=== PATIENT | female | born 1975 | race Caucasian/White ===

== ENCOUNTER → 2017-10-11 | Outpatient (CLI) | payer BC ==
--- NOTE | 2017-10-11 15:19 | DIAGNOSTIC IMAGING REPORT ---
R LOWER EXT JOINT WITHOUT CLINICAL HISTORY: RT KNEE PAIN pain TECHNIQUE: Multi axial MRI acquisition COMPARISON STUDY: None FINDINGS: Mild nonspecific contusion of the patella. Signal characteristics of all remaining osseous structures are unremarkable. Very small joint effusion. Moderate degenerative change of the patellofemoral joint moderate lateral osteophytic reaction of the patella. The patellar retinaculum are intact. Anterior and posterior cruciate ligaments are intact. Evaluation of the menisci demonstrates medial lateral meniscus to be unremarkable. The infrapatellar tendon is intact. Small popliteal cyst posterior to the knee measuring 1.7 x 0.7 cm. IMPRESSION: 1. Moderate to rather significant degenerative change patellofemoral joint. 2. Bone contusion of the patella. 3.. Small joint effusion. 4. Very small popliteal cyst. The above report was generated using voice recognition software. It may contain grammatical, syntax or spelling errors. Electronically signed by: Kristopher Aguirre M.D. 10/11/2017 3:18 PM Dictated Date/Time: 10/11/2017 3:15 PM
== END | disposition home or self-care (01) ==
LOC: C.MRI 13:50
PROVIDERS: ATTEND Physician Assistant
DX: M17.11 Unilateral primary osteoarthritis, right knee (principal); M71.21 Synovial cyst of popliteal space [Baker], right knee; S89.91XA Unspecified injury of right lower leg, initial encounter; X58.XXXA Exposure to other specified factors, initial encounter

== ENCOUNTER 2019-03-22 05:18 | Inpatient (IN) ==
[2019-03-22] MEDS ORDERED: fentaNYL citrate 100 MCG/2 ML VIAL IV STA (05:33)
[2019-03-22 05:54] LABS: Basophils # (auto) 0.01 K/uL (0-0.2); Basophils % (auto) 0.2 %; Eosinophils # (auto) 0.07 K/uL (0-0.5); Eosinophils % (auto) 1.1 %; Hematocrit (blood only) 39.5 % (37-47); Hemoglobin 13.6 g/dL (12.0-16.0); Immature Granulocytes # (auto) 0.02 K/uL (0.00-0.02); Immature Granulocytes % (auto) 0.3 %; Lymphocytes # (auto) 1.48 K/uL (1.2-3.4); Lymphocytes % (auto) 23.1 %; Mean Corpuscular Hemoglobin 29.6 pg (25-34); Mean Corpuscular Hgb Conc 34.4 g/dL (32-36); Mean Corpuscular Volume 86.1 fL (80-100); Mean Platelet Volume 9.5 fL (7.4-10.4); Monocytes # (auto) 0.23 K/uL (0.11-0.59); Monocytes % (auto) 3.6 %; Neutrophils # (auto) 4.59 K/uL (1.4-6.5); Neutrophils % (auto) 71.7 %; Platelet Count 259 K/uL (130-400); RDW Coefficient of Variation 13.6 % (11.5-14.5); RDW Standard Deviation 42.7 fL (36.4-46.3); Red Blood Count 4.59 M/uL (4.2-5.4)
[2019-03-22 06:11] LABS: Alanine Aminotransferase 17 U/L (12-78); Albumin Level 3.7 gm/dl (3.4-5.0); Aspartate Aminotransferase 12 U/L (15-37); BUN Creatinine Ratio 15.5 (10-20); Blood Urea Nitrogen 14 mg/dl (7-18); Calcium 9.2 mg/dl (8.5-10.1); Carbon Dioxide 22 mmol/L (21-32); Chloride 108 mmol/L (98-107); Creatinine Clr Calc Pharmacy 84.3 ml/min; Est GFR (Non-African American) 79.3; Glucose 108 mg/dl (70-99); Lipase 82 U/L (73-393); Potassium 3.5 mmol/L (3.5-5.1); Sodium 140 mmol/L (136-145)
[2019-03-22 06:16] LABS: Alkaline Phosphatase 60 U/L (45-117); Bilirubin,Total 0.7 mg/dl (0.2-1); Globulin 3.8 gm/dl (2.5-4.0); Total Protein 7.5 gm/dl (6.4-8.2); Troponin I < 0.015 ng/ml (0-0.045)
[2019-03-22] MEDS ORDERED: ONDANSETRON INJ 2 MG/ML 2 ML VIAL IV STA (06:19)
[2019-03-22] MEDS ORDERED: SODIUM CHLORIDE 0.9% 500 ML IV ONE (06:19)
[2019-03-22] MEDS ORDERED: fentaNYL citrate 100 MCG/2 ML VIAL IV ONE ×2 (06:19→07:30)
--- NOTE | 2019-03-22 07:07 | CT Scan Report ---
ABDOMEN AND PELVIS CT WITHOUT CONTRAST CT DOSE: 588.49 mGy.cm HISTORY: Left flank pain. eval for left sided stone; r/o gastric obstruction TECHNIQUE: Multiaxial CT images of the abdomen and pelvis were performed without contrast. A dose lo wering technique was utilized adhering to the principles of ALARA. COMPARISON STUDY: Abdomen and pelvis CT 09/04/2018. FINDINGS: The lung bases are clear. No pneumoperitoneum. No pneumatosis. No fractures within the visu alized osseous structures. Cholecystectomy. The liver, spleen, adrenal glands, pancreas, and right ki dney are unremarkable. There is a punctate stone within the upper pole the left kidney. There is mild left hydronephrosis secondary to an obstructing mid left ureteral stone best seen on image 208. This measures 4 mm. The bladder is unremarkable. The uterus and bilateral adnexa are within normal limits . Suboptimal evaluation for bowel pathology due to the lack of intravenous and oral contrast. However , there is no definite bowel wall thickening or obstruction. Normal appendix. IMPRESSION: 1. A 4 mm obstructing stone within the mid left ureter resulting in mild left hydronephrosis. 2. Left-sided nephrolithiasis. 3. No definite bowel wall thickening or obstruction. 4. Normal appendix. 5. Cholecystectomy. Electronically signed by: Dayron Hayes M.D. 03/22/2019 7:06 AM
--- NOTE | 2019-03-22 07:08 | XRay Report ---
XR chest 1V portable HISTORY: Left-sided Chest Pain COMPARISON: Chest 02/14/2019. FINDINGS: The lungs are clear. Cardiac silhouette is normal in size. No pleural effusions. No pneumot horax. IMPRESSION: No acute process. Electronically signed by: Dayron Hayes M.D. 03/22/2019 7:06 AM
[2019-03-22 07:38] LABS: Appearance Urine Turbid (Clear); Bacteria Urine Automated 1+ (Negative); Bilirubin Urine Negative (Negative); Blood Urine 3+ (Negative); Color Urine Dark Yellow; Epithelial Cell Urine Auto >30 /lpf (0-5); Glucose Urine UA Negative (Negative); Ketones Urine 1+ (Negative); Leukocyte Esterase Urine 1+ (Negative); Nitrite Urine Negative (Negative); Protein Urine 1+ (Negative); RBC Urine Automated >30 /hpf (0-4); Urobilinogen Urine Negative (Negative)
[2019-03-22] MEDS: SODIUM CHLORIDE 0.9% 500 ML IV SCH ×2 (07:39→13:53)
[2019-03-22] MEDS ORDERED: ONDANSETRON INJ 2 MG/ML 2 ML VIAL IV PRN (07:44)
[2019-03-22] MEDS ORDERED: DiphenhydrAMINE HCL 50 MG/ML VIAL IV PRN (07:45)
--- NOTE | 2019-03-22 07:49 | Emergency Department Note ---
Entered by Torie Cotto acting as a scribe for History of Present Illness General Chief complaint: Chest Pain Stated complaint: chest pain, abdominal pain Time Seen by Provider: 03/22/19 05:20 Source: patient Mode of arrival: EMS History of Present Illness Onset (ago): hour(s) 1 Location: chest Radiation: back Pain Consistency: + other (Sudden) Quality: + sharp Relieved By: + medication (Zofran) Exacerbated By: + other (light) Associated symptoms: + chest pain, + headaches, + nausea/vomiting (Positive nausea. Negative vomiting. ) and + other (Positive abdominal pain, anxious.) Treatments prior to arrival: other (Zofran) The patient is a 43 year old female who presents to the Emergency Department via EMS complaining of sudden chest pain starting 1 hour ago. The patient reports that she woke up this morning with chest pain. She states that this chest pain radiates to her back. She describes this as a sharp pain. She explains that she has abdominal pain and that she is nauseous. She notes that she has a headache and that bright lights worsen her headache. She adds that she is anxious and that her anxiety has been worse than usual lately. The patient reports that she took Cymbalta before she went to bed and thinks that it may have made her nauseous. She states that she has only taken this medication 4 times before. She explains that she is allergic to many different medications. She notes that she received Zofran INSULATION PROFESSIONAL from EMS that helped to relieve her nausea. She denies vomiting. Home Medications Home Medications Medication Instructions Recorded Confirmed Type acetaminophen [Tylenol Extra 500 mg PO Q6H PRN #20 tab 06/08/18 03/22/19 Rx Strength] diazepam 2 mg PO DIRECTED PRN 02/14/19 03/22/19 History lorazepam 0.5 mg PO DIRECTED PRN 02/14/19 03/22/19 History multivitamin 1 tab PO QAM 02/14/19 03/22/19 History rizatriptan 10 mg SUBLINGUAL UD PRN 03/22/19 03/22/19 History Allergies Allergy/AdvReac Type Severity Reaction Status Date / Time aspirin Allergy Severe Anaphylaxis Verified 03/22/19 05:49 bee venom protein (honey bee) Allergy Severe Anaphylaxis Verified 03/22/19 05:49 codeine Allergy Severe Anaphylaxis Verified 03/22/19 05:49 ibuprofen Allergy Severe Anaphylaxis Verified 03/22/19 05:49 Iodinated Contrast Media Allergy Severe Swelling Verified 03/22/19 05:49 [Iodinated Contrast- Oral of and IV Dye] Lip/Tongue/Throat latex Allergy Severe Anaphylaxis Verified 03/22/19 05:49 oxycodone Allergy Severe Anaphylaxis Verified 03/22/19 05:49 Penicillins Allergy Severe Anaphylaxis Verified 03/22/19 05:49 Sulfa (Sulfonamide Allergy Severe Anaphylaxis Verified 03/22/19 05:49 Antibiotics) milk AdvReac Intermediate Vomiting Verified 03/22/19 05:49 prednisone AdvReac Unknown Unknown Verified 03/22/19 20:30 Past Med/Surg History Medical History Colic, ureteral Hydronephrosis Ureteral stone Surgical History Hx laparoscopic cholecystectomy Hx of breast reduction, elective Family History Other No significant family history Social History Preferred Language: Jordanian Communication Ability: Effective Wiping Rag Washer Required: No Beliefs That Will Affect Care: None Current Living Situation: Family Other Information That Helps Us Care for You: No Feels Safe at Home: Yes Safety Concerns: Feels Safe At This Time Smoking Status: Never smoker Hx Alcohol Use: No Hx Substance Use: No Review of Systems See HPI for pertinent positives & negatives. and A total of 10 systems reviewed and were otherwise negative Physical Exam Vital Signs Vital Signs - 24 hr 03/22/19 05:26 03/22/19 05:38 03/22/19 06:28 Temperature 36.3 C L Temperature Source Oral Sepsis Recent Fever Within 48 Hours No Sepsis Action Taken by Nursing No Action Required Pulse Rate 53 L Pulse Rate [Right] 49 L Pulse Rhythm Regular Pulse Rhythm [Right] Regular Pulse Strength Normal Pulse Strength [Right] Normal Respiratory Rate 20 16 Respiratory Effort / Characteristics Non-Labored Spontaneous Non-Labored Spontaneous Respiratory Depth Normal Normal Blood Pressure 165/96 H Blood Pressure [Right Arm] 130/88 Blood Pressure Mean 119 Blood Pressure Mean [Right Arm] 102 Blood Pressure Position Sitting Blood Pressure Position [Right Arm] Lying Pulse Oximetry 100 100 98 Oxygen Delivery Method Room Air Room Air Room Air 03/22/19 07:43 Temperature Temperature Source Sepsis Recent Fever Within 48 Hours Sepsis Action Taken by Nursing Pulse Rate Pulse Rate [Right] 59 L Pulse Rhythm Pulse Rhythm [Right] Pulse Strength Pulse Strength [Right] Respiratory Rate 18 Respiratory Effort / Characteristics Non-Labored Spontaneous Respiratory Depth Normal Blood Pressure Blood Pressure [Right Arm] 122/86 Blood Pressure Mean Blood Pressure Mean [Right Arm] 98 Blood Pressure Position Blood Pressure Position [Right Arm] Pulse Oximetry 100 Oxygen Delivery Method Room Air General: Patient appears quite anxious. HEENT: Head - normocephalic and atraumatic Pupils are equal, round, and reactive to light. Extraocular eye muscles are intact, and sclera are anicteric. Nose - moist nasal mucosa without discharge. Mouth - moist buccal mucosa. Oropharynx is nonerythematous and there is no tonsillar exudate or edema noted. Neck: Supple; no cervical lymphadenopathy Heart: Regular rate and rhythm. There is a normal S1 and S2 with no murmurs, cl icks, or gallops appreciated. Lungs: Clear to auscultation bilaterally with no wheezes, rales, or rhonchi. Abdomen: Pain to palpation of LUQ, LLQ and left CVA. Soft, nondistended, with good bowel sounds. There are no palpable pulsatile masses or hepatosplenomegaly. There is no guarding, rigidity, or rebound noted. Extremities: No evidence of cyanosis, clubbing, or edema. There are easily palpable peripheral pulses. Skin: warm and dry with good turgor and no rashes. Course 0522: Past medical records reviewed. The patient was evaluated in room B7. A complete history and physical exam was performed. Labs were drawn as above. 0543: Fentanyl Citrate 25 mcg IV 0618: I reevaluated the patient at this time who reports that Fentanyl only gave her slight relief for a short period of time and that her pain has worsened since then in the LUQ of her abdomen. She is not able to urinate. I will order more Zofran. She will go to CT. 0625: Fentanyl Citrate 50 mcg IV, Sodium Chloride 500 ml @ 999 mls/hr IV, Zofran 4 mg IV 0644: CT called me at this time. The patient refused to take her arms off of her abdomen. I was called over to CT. She was insistent that her come into CT with her and hold her hand while she was getting her scan. After the veterinary assistant technician explained the danger of radiation exposure he would get, he went into CT with t he patient while wearing a lead apron. 0714: I reviewed the patients renal US from 2013 which showed a right-sided 7 mm stone. 0716: I reevaluated the patient at this time to discuss the results of the CT. She is demanding to be admitted for pain management. 0739: Fentanyl Citrate 50 mcg IV, Sodium Chloride 500 ml @ 125 mls/hr IV 0740: I discussed the patient's case with Dr. Jairo Rich hospitalist. He will evaluate the patient for further management. Consultations Consultation #1: [id number]: I discussed the patient's case with Dr. Jairo Rich [facility]. He will evaluate the patient for further management. Time: 07:40 Administered Medications Diazepam (Valium) 2 mg PO BID PRN PRN Reason: Anxiety Stop: 04/21/19 14:38 Last Admin: 03/22/19 16:21 Dose: 2 mg Documented by: [id number] Duloxetine HCl (Cymbalta) 20 mg PO HS BORA Stop: 04/21/19 20:59 Last Admin: 03/22/19 20:17 Dose: 20 mg Documented by: [id number] Acetaminophen (Ofirmev) 65 mls @ 200 mls/hr IV Q8H PRN PRN Reason: mild pain or fever Stop: 04/21/19 07:44 Last Infusion: 03/22/19 21:29 Dose: 0 mls/hr Documented by: [id number] Admin: 03/22/19 21:02 Dose: 200 mls/hr Documented by: [id number] Sodium Chloride (Nss 1000ml) 1,000 mls @ 125 mls/hr IV .Q8H BORA Stop: 04/21/19 13:59 Last Admin: 03/22/19 22:30 Dose: 125 mls/hr Documented by: [id number] Infusion: 03/22/19 22:25 Dose: 125 mls/hr Documented by: [id number] Infusion: 03/22/19 21:28 Dose: 125 mls/hr Documented by: [id number] Infusion: 03/22/19 21:02 Dose: 0 mls/hr Documented by: [id number] Admin: 03/22/19 13:59 Dose: 125 mls/hr Documented by: [id number] Oxybutynin Chloride (Ditropan) 5 mg PO BID PRN PRN Reason: Spasm Stop: 04/21/19 10:44 Last Admin: 03/22/19 13:57 Dose: 5 mg Documented by: [id number] Tamsulosin HCl (Flomax) 0.4 mg PO HS BORA Stop: 04/21/19 20:59 Last Admin: 03/22/19 20:17 Dose: 0.4 mg Documented by: [id number] Discontinued Medications Diazepam (Valium) 2 mg PO NOW ONE Stop: 03/22/19 16:20 Last Admin: 03/22/19 16:41 Dose: Not Given Documented by: [id number] Fentanyl Citrate (Fentanyl Citrate) 25 mcg IV NOW STA Stop: 03/22/19 05:34 Last Admin: 03/22/19 05:43 Dose: 25 mcg Documented by: [id number] Fentanyl Citrate (Fentanyl Citrate) 50 mcg IV NOW ONE Stop: 03/22/19 06:20 Last Admin: 03/22/19 06:25 Dose: 50 mcg Documented by: [id number] Fentanyl Citrate (Fentanyl Citrate) 50 mcg IV NOW ONE Stop: 03/22/19 07:31 Last Admin: 03/22/19 07:39 Dose: 50 mcg Documented by: [id number] Sodium Chloride (Nss) 500 mls @ 999 mls/hr IV .Q31M ONE Stop: 03/22/19 06:49 Last Infusion: 03/22/19 06:56 Dose: 0 mls/hr Documented by: [id number] Admin: 03/22/19 06:25 Dose: 999 mls/hr Documented by: [id number] Sodium Chloride (Nss) 500 mls @ 125 mls/hr IV .Q4H BORA Stop: 04/21/19 07:29 Last Admin: 03/22/19 13:53 Dose: Not Given Documented by: [id number] Infusion: 03/22/19 13:52 Dose: 0 mls/hr Documented by: [id number] Infusion: 03/22/19 10:50 Dose: 125 mls/hr Documented by: [id number] Admin: 03/22/19 07:39 Dose: 125 mls/hr Documented by: [id number] Acetaminophen (Ofirmev) 65 mls @ 200 mls/hr IV NOW ONE Stop: 03/22/19 09:26 Last Admin: 03/22/19 09:16 Dose: Not Given Documented by: [id number] Ondansetron HCl (Zofran) 4 mg IV NOW STA Stop: 03/22/19 06:20 Last Admin: 03/22/19 06:25 Dose: 4 mg Documented by: [id number] Tamsulosin HCl (Flomax) 0.4 mg PO NOW ONE Stop: 03/22/19 10:38 Last Admin: 03/22/19 11:32 Dose: 0.4 mg Documented by: [id number] Medical Decision Making Differential Diagnosis Differential diagnosis include ACS, anxiety, aortic dissection, SBO, ureteral calculi, pyelonephritis and diverticulitis amongst others. Medical Records Attestation: I reviewed the patient's medical records. Home Medications Current Medication List: was personally reviewed by me Laboratory Data Attestation: I reviewed the patient's lab results. Result diagrams: 03/22/19 05:44 03/22/19 05:44 Lab Results 03/22/19 03/22/19 03/22/19 Range/Units 05:44 05:44 07:10 WBC 6.40 (4.8-10.8) K/uL RBC 4.59 (4.2-5.4) M/uL Hgb 13.6 (12.0-16.0) g/dL Hct 39.5 (37-47) % MCV 86.1 (80-100) fL MCH 29.6 (25-34) pg MCHC 34.4 (32-36) g/dL RDW Std Deviation 42.7 (36.4-46.3) fL RDW Coeff of Bhavna 13.6 (11.5-14.5) % Plt Count 259 (130-400) K/uL MPV 9.5 (7.4-10.4) fL Immature Gran % (Auto) 0.3 % Neut % (Auto) 71.7 % Lymph % (Auto) 23.1 % Andrew % (Auto) 3.6 % Eos % (Auto) 1.1 % Baso % (Auto) 0.2 % Immature Gran # (Auto) 0.02 (0.00-0.02) K/uL Neut # (Auto) 4.59 (1.4-6.5) K/uL Lymph # (Auto) 1.48 (1.2-3.4) K/uL Andrew # (Auto) 0.23 (0.11-0.59) K/uL Eos # (Auto) 0.07 (0-0.5) K/uL Baso # (Auto) 0.01 (0-0.2) K/uL Sodium 140 (136-145) mmol/L Potassium 3.5 (3.5-5.1) mmol/L Chloride 108 H (98-107) mmol/L Carbon Dioxide 22 (21-32) mmol/L Anion Gap 10.0 (3-11) BUN 14 (7-18) mg/dl Creatinine 0.88 (0.6-1.2) mg/dl Est Cr Clr Drug Dosing 84.3 ml/min Est GFR ( Amer) 92.0 Est GFR (Non-Af Amer) 79.3 BUN/Creatinine Ratio 15.5 (10-20) Glucose 108 H (70-99) mg/dl Calcium 9.2 (8.5-10.1) mg/dl Total Bilirubin 0.7 (0.2-1) mg/dl AST 12 L (15-37) U/L ALT 17 (12-78) U/L Alkaline Phosphatase 60 (45-117) U/L Troponin I < 0.015 (0-0.045) ng/ml Total Protein 7.5 (6.4-8.2) gm/dl Albumin 3.7 (3.4-5.0) gm/dl Globulin 3.8 (2.5-4.0) gm/dl Albumin/Globulin Ratio 1.0 (0.9-2) Lipase 82 (73-393) U/L Urine Color Urine Appearance (Clear) Urine pH (4.5-7.5) Ur Specific [place] (1.000-1.030) Urine Protein (Negative) Urine Glucose (UA) (Negative) Urine Ketones (Negative) Urine Blood (Negative) Urine Nitrite (Negative) Urine Bilirubin (Negative) Urine Urobilinogen (Negative) Ur Leukocyte Esterase (Negative) Urine WBC (Auto) (0-5) /hpf Urine RBC (Auto) (0-4) /hpf U Hyaline Cast (Auto) (0-5) /lpf U Epithel Cells (Auto) (0-5) /lpf Urine Bacteria (Auto) (Negative) Urine Crystals Calcium Oxalate Crystal (None Prsent) Urine Mucus (None Prsent) POC Ur Test NEG (NEG) 03/22/19 Range/Units 07:10 WBC (4.8-10.8) K/uL RBC (4.2-5.4) M/uL Hgb (12.0-16.0) g/dL Hct (37-47) % MCV (80-100) fL MCH (25-34) pg MCHC (32-36) g/dL RDW Std Deviation (36.4-46.3) fL RDW Coeff of Bhavna (11.5-14.5) % Plt Count (130-400) K/uL MPV (7.4-10.4) fL Immature Gran % (Auto) % Neut % (Auto) % Lymph % (Auto) % Andrew % (Auto) % Eos % (Auto) % Baso % (Auto) % Immature Gran # (Auto) (0.00-0.02) K/uL Neut # (Auto) (1.4-6.5) K/uL Lymph # (Auto) (1.2-3.4) K/uL Andrew # (Auto) (0.11-0.59) K/uL Eos # (Auto) (0-0.5) K/uL Baso # (Auto) (0-0.2) K/uL Sodium (136-145) mmol/L Potassium (3.5-5.1) mmol/L Chloride (98-107) mmol/L Carbon Dioxide (21-32) mmol/L Anion Gap (3-11) BUN (7-18) mg/dl Creatinine (0.6-1.2) mg/dl Est Cr Clr Drug Dosing ml/min Est GFR ( Amer) Est GFR (Non-Af Amer) BUN/Creatinine Ratio (10-20) Glucose (70-99) mg/dl Calcium (8.5-10.1) mg/dl Total Bilirubin (0.2-1) mg/dl AST (15-37) U/L ALT (12-78) U/L Alkaline Phosphatase (45-117) U/L Troponin I (0-0.045) ng/ml Total Protein (6.4-8.2) gm/dl Albumin (3.4-5.0) gm/dl Globulin (2.5-4.0) gm/dl Albumin/Globulin Ratio (0.9-2) Lipase (73-393) U/L Urine Color Dark Yellow Urine Appearance Turbid A (Clear) Urine pH 5.0 (4.5-7.5) Ur Specific [place] 1.020 (1.000-1.030) Urine Protein 1+ H (Negative) Urine Glucose (UA) Negative (Negative) Urine Ketones 1+ H (Negative) Urine Blood 3+ H (Negative) Urine Nitrite Negative (Negative) Urine Bilirubin Negative (Negative) Urine Urobilinogen Negative (Negative) Ur Leukocyte Esterase 1+ H (Negative) Urine WBC (Auto) 10-30 H (0-5) /hpf Urine RBC (Auto) >30 H (0-4) /hpf U Hyaline Cast (Auto) 5-10 H (0-5) /lpf U Epithel Cells (Auto) >30 H (0-5) /lpf Urine Bacteria (Auto) 1+ H (Negative) Urine Crystals Not Reportable Calcium Oxalate Crystal Present A (None Prsent) Urine Mucus Present A (None Prsent) POC Ur Test (NEG) Imaging Data Attestation: I personally reviewed and interpreted this imaging study as follows: My Impression: XR Chest 1V: No pulmonary pathology. Extremely large gastric bubble under left hero diaphragm. Radiologist's Impression: Radiology results as stated below per my review and the radiologist's interpretation: ABDOMEN AND PELVIS CT WITHOUT CONTRAST CT DOSE: 588.49 mGy.cm HISTORY: Left flank pain. eval for left sided stone; r/o gastric obstruction TECHNIQUE: Multiaxial CT images of the abdomen and pelvis were performed without contrast. A dose lowering technique was utilized adhering to the principles of ALARA. COMPARISON STUDY: Abdomen and pelvis CT 09/04/2018. FINDINGS: The lung bases are clear. No pneumoperitoneum. No pneumatosis. No fractures within the visualized osseous structures. Cholecystectomy. The liver, spleen, adrenal glands, pancreas, and right kidney are unremarkable. There is a punctate stone within the upper pole the left kidney. There is mild left hydronephrosis secondary to an obstructing mid left ureteral stone best seen on image 208. This measures 4 mm. The bladder is unremarkable. The uterus and bilateral adnexa are within normal limits. Suboptimal evaluation for bowel pathology due to the lack of intravenous and oral contrast. However, there is no definite bowel wall thickening or obstruction. Normal appendix. IMPRESSION: 1. A 4 mm obstructing stone within the mid left ureter resulting in mild left hydronephrosis. 2. Left-sided nephrolithiasis. 3. No definite bowel wall thickening or obstruction. 4. Normal appendix. 5. Cholecystectomy. Electronically signed by: Dayron Hayes M.D. 03/22/2019 7:06 AM ECG Data Attestation: I personally reviewed and interpreted this ECG as follows: Indication: chest pain Rate (beats per minute): 51 Rhythm: sinus bradycardia Findings: no acute ischemic change and no ectopy Blood Pressure Blood Pressure Findings: Elevated blood pressure Blood Pressure Disposition: further management by hospitalist DELL Clark The patient is a 43 year old female who presents to the Emergency Department via EMS complaining of sudden chest pain starting 1 hour ago as well as left-sided abdominal pain.. Differential diagnosis include ACS, anxiety, aortic dissection, SBO, ureteral calculi, pyelonephritis and diverticulitis amongst others. Patient presents to the emergency department and is extremely anxious. She has multiple previous reactions to meds and is fearful of receiving pain medication but is in extreme left-sided abdominal pain. She was given IV fentanyl which she has had in the past and this did relieve her symptoms for short period of time. CT scan confirms a left-sided ureteral stone measuring 4 mm. I talked to the patient and her about the likelihood that this would pass on its own but the patient was unwilling to be discharged fear that she could not control her pain at home since the only oral medication that she can tolerate his Tylenol. I agree discussed the case with the hospitalist. The [facility] Hospitalist has agreed to evaluate the patient and consult urology. As for the patient's chest pain, she had a normal EKG and it seemed to resolve after some time. Most of her discomfort was left-sided abdominal pain and flank pain. Impression & Plan Hydronephrosis with renal and ureteral calculus obstruction Discharge Plan Visit Data *Final* Discharge Date/Time: 03/22/19 09:27 Chief Complaint: Chest Pain Stated Complaint: chest pain, abdominal pain ED Provider: Heidi Wolf Discharge Problem: Hydronephrosis with renal and ureteral calculus obstruction Patient Disposition: Admitted As Inpatient Discharge Instructions Interventions: ED Discharge Assessment Last Done: 03/22/19 09:27 The scribe's documentation has been prepared under my direction and personally reviewed by me in its entirety. I confirm that the note above accurately reflects all work, treatment, procedures, and medical decision making performed by me.
[2019-03-22 07:53] LABS: Calcium Oxalate Crystals Urine Present (None Prsent)
[2019-03-22 07:54] LABS: Mucus Urine Present (None Prsent)
--- NOTE | 2019-03-22 08:06 | History & Physical Report ---
Date of Service March 22, 2019 Assessment & Plan (1) Hydronephrosis of left kidney: (2) Hydronephrosis with renal and ureteral calculus obstruction: -Hydronephrosis of left kidney secondary to obstruction renal stone -admission CT abdomen: The lung bases are clear. No pneumoperitoneum. No pneumatosis. No fractures within the visualized osseous structures. Cholecystectomy. The liver, spleen, adrenal glands, pancreas, and right kidney are unremarkable. There is a punctate stone within the upper pole the left kidney. There is mild left hydronephrosis secondary to an obstructing mid left ureteral stone best seen on image 208. This measures 4 mm. The bladder is unremarkable. The uterus and bilateral adnexa are within normal limits. Suboptimal evaluation for bowel pathology due to the lack of intravenous and oral contrast. However, there is no definite bowel wall thickening or obstru ction. Normal appendix. -IV fluids as 125 cc/hr -Pain control is an issue because of multiple drug allergies with alleged anaphylaxis reactions such as mouth/throat swelling/closing -Patient received multiple Fentanyl doses in the ED -will hold off narcotic until re-assessment during the day when patient goes to medical ballard -will have prn IV acetaminophen for pain or fever, will have IV anti-emetics as needed -[facility] consult as patient was treated on the past by [facility] when she had kidney stones in the past (3) PTSD (post-traumatic stress disorder): -[facility] [place] - Guevara at bedside [phone] corroborates patient's requests of wanting private room because of PTSD -will hold off home oral anxiolytics for now and given low dose prn q6 hour ativan for anxiety if needed. regimen may change depending on patient's anxiety levels Full Code Status History of Present Illness The patient is a 43 year old female who presents to the Emergency Department via EMS who woke up with pain in AM of 03/22/19 and found to have left kidney stone of 4 mm that is obstructing with hydronephrosis. Patient reports that with symptoms she has recent poor oral intake. Initially, ED notes described pain has also been associated with chest discomfort radiating to back, and abdominal pain and nausea. Patient also requested that the lights be turned off in the ED exam room to avoid exacerbating headache. Because of multiple drug allergies inc luding different types of pain medications with reported history of anaphylaxis reactions such as mouth/throat swelling/closing, the ED physician gave multiple Fentanyl doses as the recourse to control severe pain. When seen by hospitalist physician, patient was seen to be uncomfortable and drowsy and complaining of feeling the "bed pushing against her back" Patient was able to sit up with assistance from her at the bedside. Patient denied pain of chest or abdomen when examined by medical doctor and there was reported more discomfort on percussion of left flank but the patient did not appear to be acutely tender there. Patient was alert to give some health history but deferred to her to answer past medical health issues in detail due to malaise. Patient also reports history of right sided renal stone that was managed by [facility] urology around May of 2018. Patient and patient's affirms that patient needs a private room when admitted because of history of Post Traumatic Stress Disorder and recently was started on Cymbalta at home. As per patient and her : denies other current medical conditions. denies family history of health problems Primary Care Provider: NO PCP Allergies Allergy/AdvReac Type Severity Reaction Status Date / Time aspirin Allergy Severe Anaphylaxis Verified 03/22/19 05:49 bee venom protein (honey bee) Allergy Severe Anaphylaxis Verified 03/22/19 05:49 codeine Allergy Severe Anaphylaxis Verified 03/22/19 05:49 ibuprofen Allergy Severe Anaphylaxis Verified 03/22/19 05:49 Iodinated Contrast Media Allergy Severe Swelling Verified 03/22/19 05:49 [Iodinated Contrast- Oral of and IV Dye] Lip/Tongue/Throat latex Allergy Severe Anaphylaxis Verified 03/22/19 05:49 oxycodone Allergy Severe Anaphylaxis Verified 03/22/19 05:49 Penicillins Allergy Severe Anaphylaxis Verified 03/22/19 05:49 Sulfa (Sulfonamide Allergy Severe Anaphylaxis Verified 03/22/19 05:49 Antibiotics) milk AdvReac Intermediate Vomiting Verified 03/22/19 05:49 Home Medications Home Medications Medication Instructions Recorded Confirmed Type acetaminophen [Tylenol Extra 500 mg PO Q6H PRN #20 tab 06/08/18 03/22/19 Rx Strength] rizatriptan 10 mg PO UD PRN 06/08/18 03/22/19 History diazepam 2 mg PO DIRECTED PRN 02/14/19 03/22/19 History lorazepam 0.5 mg PO DIRECTED PRN 02/14/19 03/22/19 History multivitamin 1 tab PO QAM 02/14/19 03/22/19 History Past Med/Surg History Medical History Colic, ureteral Hydronephrosis Ureteral stone Surgical History Hx laparoscopic cholecystectomy Hx of breast reduction, elective Family History Other No significant family history Social History Preferred Language: Gambian Communication Ability: Effective Beliefs That Will Affect Care: None Current Living Situation: Spouse Feels Safe at Home: Yes Smoking Status: Never smoker Hx Substance Use: No Review of Systems Review of Systems: All systems reviewed & are unremarkable except as noted in HPI & below Physical Exam Constitutional: + ill appearing Eyes: EOM intact bilaterally ENMT: external ear and nose normal, oropharynx normal Neck: normal visual inspection Respiratory: normal respiratory effort, lungs clear to auscultation Cardiovascular: RRR, no murmur, no edema Gastrointestinal (Abdomen): normal bowel sounds, soft, nontender, no hepatosplenomegaly Musculoskeletal: Head/Neck/Chest: normocephalic and head atraumatic on percussion of flanks, patient reports tenderness to the left flank Neurologic: moves all extremities Results & Data Vital Signs (Past 12 Hours) Vital Signs Temp Pulse Pulse Resp BP BP Pulse Ox 03/22/19 07:43 59 L 18 122/86 100 03/22/19 06:28 49 L 16 130/88 98 03/22/19 05:38 100 03/22/19 05:26 36.3 C L 53 L 20 165/96 H 100
[2019-03-22] MEDS ORDERED: ACETAMINOPHEN 65 ML IV ONE (09:07)
[2019-03-22] MEDS ORDERED: LORazepam 0.25 MG/0.5 ML VIAL IV PRN (09:57)
[2019-03-22] MEDS ORDERED: TAMSULOSIN HCL 0.4 MG CAP PO ONE (10:37)
[2019-03-22] MEDS ORDERED: OXYBUTYNIN CHLORIDE 5 MG TAB PO PRN (10:37)
--- NOTE | 2019-03-22 11:03 | Urology Consultation ---
Date of Consultation March 22, 2019 Assessment & Plan (1) Hydronephrosis of left kidney: Discussed options at length. Patient has obstructing stone with severe colic. Small stone is small and likely would be able to pass however the amount of time necessary to pass can be highly variable. Patient understands these risks. Has not had fevers or chills. Is extremely anxious at baseline and has multiple previous psychiatric related issues secondary to PTSD. Patient has multiple allergies listed which ceased states many of which cause anaphylaxis. Discussed options for stent placement. Risks and benefits discussed at length for procedure. These include bleeding, infection, injury to surrounding tissues or organs, and risks associated with anesthesia. Patient states understanding. Patient is extremely hesitant to undergo a surgical procedure. Also had significant issues with stent in the past. Discussed timing of intervention and possible urgent/emergent necessity if patient starts to develop fevers. For now will provide symptom control. Will add tamsulosin. A long conversation was had about sulfa allergies. Patient states that she does not believe that she has an issue with sulfur. Newest list of allergies does not listed as well. Our records however do show sulfa as an allergy. Understands risk related to tamsulosin and sulfur content. Would like to proceed with the tamsulosin after discussing other alternatives. Also will add Ditropan as needed. Discussed Toradol however patient is confident she has a anaphylactic allergy to all NSAIDs. We will continue to monitor closely will maintain n.p.o. for now however will likely allow patient to eat later in the day. Especially if no plans to proceed to the OR unless an emergent type situation. Continue hydration and supportive control. Will check imaging likely in the morning depending on patient's stay. History of Present Illness Attending Physician: Tahco Gill MD History of Present Illness Patient admitted with severe colic rating to groin in waves. Severe nature. Patient was found to have hydronephrosis and stone with obstruction. Patient has had episodes in the past approximately 9 months ago. Required stenting at that time. Patient has a very complicated medical and psychiatric history. Has severe issues with multiple medications which has significantly limited the ability to get the patient's pain under control. Is extremely anxious about anesthesia and procedures. Pain continues to be bothersome. Has not had much relief other than with fentanyl. Again multiple medications were limited secondary to multiple allergies. Patient and at bedside. They do have a new list which list of known allergies. They state this is the most up-to-date and recommend utilizing this for medications. Specifically patient has sulfa listed as an allergy on her records however per the patient and per the patient's new list sulfa is not a issue. This is important secondary to tamsulosin administration. Allergies Allergy/AdvReac Type Severity Reaction Status Date / Time aspirin Allergy Severe Anaphylaxis Verified 03/22/19 05:49 bee venom protein (honey bee) Allergy Severe Anaphylaxis Verified 03/22/19 05:49 codeine Allergy Severe Anaphylaxis Verified 03/22/19 05:49 ibuprofen Allergy Severe Anaphylaxis Verified 03/22/19 05:49 Iodinated Contrast Media Allergy Severe Swelling Verified 03/22/19 05:49 [Iodinated Contrast- Oral of and IV Dye] Lip/Tongue/Throat latex Allergy Severe Anaphylaxis Verified 03/22/19 05:49 oxycodone Allergy Severe Anaphylaxis Verified 03/22/19 05:49 Penicillins Allergy Severe Anaphylaxis Verified 03/22/19 05:49 Sulfa (Sulfonamide Allergy Severe Anaphylaxis Verified 03/22/19 05:49 Antibiotics) milk AdvReac Intermediate Vomiting Verified 03/22/19 05:49 Home Medications Home Medications Medication Instructions Recorded Confirmed Type acetaminophen [Tylenol Extra 500 mg PO Q6H PRN #20 tab 06/08/18 03/22/19 Rx Strength] rizatriptan 10 mg PO UD PRN 06/08/18 03/22/19 History diazepam 2 mg PO DIRECTED PRN 02/14/19 03/22/19 History lorazepam 0.5 mg PO DIRECTED PRN 02/14/19 03/22/19 History multivitamin 1 tab PO QAM 02/14/19 03/22/19 History Patient History Medical History Colic, ureteral Hydronephrosis Ureteral stone Surgical History Hx laparoscopic cholecystectomy Hx of breast reduction, elective Family History Other No significant family history Social History Preferred Language: Cypriot Communication Ability: Effective 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 Experiencing severe episodes of colic. Patient is well nourished and well kept. HEENT: Normocephalic Atraumatic. Inspection normal. Cranial Nerves 2-12 Grossly intact. Nares are clear. Neck is supple. Normal inspection of face. Normal inspection of neck. Neurologic: No deficits on inspection. Baseline for motor function and sensory. Psychologic: Extremely anxious Respiratory: Nonlabored. No use of accessory muscles. No tachypnea or dyspnea. Cardiovascular: No tachycardia Skin: [place] and Dry. No rashes or visible lesions. Extremities: Moving without issues. No motor deficits on inspection Lymphatics: No edema Abdomen: Moderately distended. Tender left flank and groin. No rebound or guarding. Results & Data Vital Signs (Past 12 Hours) Vital Signs Temp Pulse Pulse Resp BP BP Pulse Ox 03/22/19 09:58 36.7 C 54 L 16 124/85 94 03/22/19 09:07 56 L 18 129/52 L 96 03/22/19 07:43 59 L 18 122/86 100 03/22/19 06:28 49 L 16 130/88 98 03/22/19 05:38 100 03/22/19 05:26 36.3 C L 53 L 20 165/96 H 100 PG Care Time/CCT Total # of Minutes Spent Total Time Spent with Patient: Total time spent is greater than 50% in coordination of care (as documented) at patient's floor/unit and/or counseling patient:
[2019-03-22] MEDS: SODIUM CHLORIDE 0.9% 1000ML 1,000 ML IV SCH ×2 (13:59→22:30)
[2019-03-22] MEDS ORDERED: RIZATRIPTAN BENZOATE 10 MG TAB PO PRN (14:38)
[2019-03-22] MEDS ORDERED: diazePAM 2 MG TABLET PO ONE (16:19)
[2019-03-22] MEDS: diazePAM 2 MG TABLET PO PRN (16:21)
[2019-03-22] MEDS: DULOXETINE HCL 20 MG CAP PO SCH (20:17)
[2019-03-22] MEDS: TAMSULOSIN HCL 0.4 MG CAP PO SCH (20:17)
[2019-03-22] MEDS: ACETAMINOPHEN 65 ML IV PRN (21:02)
[2019-03-22] MEDS ORDERED: RIZATRIPTAN BENZOATE MLT 10 MG TAB SL PRN (22:09)
[2019-03-23] MEDS: SODIUM CHLORIDE 0.9% 1000ML 1,000 ML IV SCH ×4 (06:32→23:49)
[2019-03-23] MEDS: ACETAMINOPHEN 65 ML IV PRN ×2 (06:32→18:54)
[2019-03-23] MEDS ORDERED: ACETAMINOPHEN 325 MG TAB PO PRN (07:07)
--- NOTE | 2019-03-23 09:09 | XRay Report ---
XR KUB/Abdomen 1 view CLINICAL HISTORY: follow kidney stone COMPARISON STUDY: CT scan dated 03/22/2019 FINDINGS: There is no pathologic bowel dilatation. There are surgical clips within the right upper qu adrant consistent with a prior cholecystectomy. The renal shadows are largely obscured by overlying b owel gas and fecal material. No renal calculi are visualized. There is a faint 6 mm calcification pro jected over the inferior aspect of the left L5 transverse process. This could represent a proximal to mid left ureteral calculus. IMPRESSION: 1. Equivocal visualization of a proximal to mid left ureteral calculus at the L5 level. 2. No evidence of pathologic bowel dilatation. Electronically signed by: Raymundo Godinez M.D. 03/23/2019 9:08 AM
--- NOTE | 2019-03-23 10:52 | Hospitalist Progress Note ---
Date of Service March 23, 2019 Assessment & Plan (1) Hydronephrosis of left kidney: (2) Hydronephrosis with renal and ureteral calculus obstruction: -Hydronephrosis of left kidney secondary to obstruction renal stone -admission CT abdomen: The lung bases are clear. No pneumoperitoneum. No pneumatosis. No fractures within the visualized osseous structures. Cholecystectomy. The liver, spleen, adrenal glands, pancreas, and right kidney are unremarkable. There is a punctate stone within the upper pole the left kidney. There is mild left hydronephrosis secondary to an obstructing mid left ureteral stone best seen on image 208. This measures 4 mm. The bladder is unremarkable. The uterus and bilateral adnexa are within normal limits. Suboptimal evaluation for bowel pathology due to the lack of intravenous and oral contrast. However, there is no definite bowel wall thickening or obstru ction. Normal appendix. -IV fluids as 125 cc/hr -Pain control is an issue because of multiple drug allergies with alleged anaphylaxis reactions such as mouth/throat swelling/closing -Patient received multiple Fentanyl doses in the ED -patient did not want to be in PCU telemetry ballard if IV Fentanyl was needed -she has declined IV acetaminophen -currently orders or oral acetaminophen prn for pain -IV anti-emetics as needed -[facility] consult evaluated the patient and started tamsulosin and oxybutynin, will continue these medications -KUB on 03/23/19 has not shown passing of renal stone, patient would like to continue conservative management with IV fluids and tamsulosin and oxybutynin. she agrees to be NPO after midnight in case no further passing of kidney stone and in case patient changes her mind about urology surgical interventions such as ureteral stenting or lithotripsy (3) PTSD (post-traumatic stress disorder): -patient is and follows with [facility] [place] - Guevara at bedside [phone] corroborates patient's requests of wanting private room because of PTSD -Cymbalta qhs, Benzodiazepine anxiolytic prn Full Code Status Subjective not in distress. reports of left flank pain tenderness. patient's mood and affect appears to be much improved today. She had crackers for food overnight. she reports nausea. she denies vomiting. no abdomen pain. she reports she has been able to make urine. Physical Exam Constitutional: not in distress. reports of left flank pain tenderness. Eyes: EOM intact bilaterally ENMT: external ear and nose normal, oropharynx normal Neck: normal visual inspection Respiratory: normal respiratory effort, lungs clear to auscultation Cardiovascular: RRR, no murmur, no edema Gastrointestinal (Abdomen): normal bowel sounds, soft, nontender, no hepatosplenomegaly Musculoskeletal: Head/Neck/Chest: normocephalic and head atraumatic Neurologic: moves all extremities Psychiatric: A+Ox3, euthymic affect Results & Data Vital Signs (Past 12 Hours) Vital Signs Temp Pulse Resp BP Pulse Ox Pulse Ox 03/22/19 23:45 97 03/22/19 23:38 36.6 C 61 14 126/86 97
--- NOTE | 2019-03-23 11:48 | Urology Progress Note ---
Date of Service March 23, 2019 Assessment & Plan (1) Hydronephrosis with renal and ureteral calculus obstruction: 43yo F with 4mm mid ureteral stone, mild hydro, abdominal bloating, Remains very uncomfortable, abdominal pain worsened after eating fruit. She feels her pain is mostly due to bloating and constipation. Discussed ureteral stenting for acute pain, unfortunately she just ate fruit prior to my visit today. She also does not feel stent will improve her pain controlled based upon past experience. Will discuss bowel regimen options with Dr. Gill. Encouraged ambulation. States she cannot chew gum due to TMJ. Continue IVFs, strain all urine. Continue flomax. Plan to make NPO at midnight, another KUB in AM to assess progress with stone. Please consult our service urgently if patient develops fever >101F, intractable pain or nausea, as this will necessitate urgent surgical intervention. Thank you for the consultation and we will continue to monitor closely with primary service. Subjective Pt in bed, anxious appearing this afteroon, at bedside. Experiencing generalized abdominal pain, bloating and constipation as predominate complaint today. Worsened after she ate fruit just prior to my arrival Discussed ureteral stenting as her pain may be related to stone, pain control continues to be an issue with allergies. Continue to void spontaneously Denies hematuria. Review of Systems Review of Systems: All systems reviewed & are unremarkable except as noted in HPI & below Physical Exam Constitutional: no acute distress anxious Eyes: no nystagmus ENMT: Ears: no hearing impairment Neck: trachea midline Respiratory: no respiratory distress and no cough Cardiovascular: Vessels: no JVD Chest (Breasts): Chest: normal inspection of chest Gastrointestinal (Abdomen): Inspection/Auscultation: abdomen not distended and no abdominal edema Percussion/Palpation: abdomen soft; abdomen nontender Musculoskeletal: Head/Neck/Chest: normocephalic and head atraumatic Skin: no rashes, warm and dry Neurologic: awake; not confused and not obtunded Psychiatric: Orientation: alert and oriented x 3 Eye Contact: good eye contact Affect: no depressed affect Lymphatic: no lymphadenopathy and no lymphedema PG Care Time/CCT Total # of Minutes Spent Total Time Spent with Patient: Total time spent is greater than 50% in coordination of care (as documented) at patient's floor/unit and/or counseling patient:
[2019-03-23] MEDS ORDERED: POLYETHYLENE (MIRALAX) 17 GM PACK PO PRN (12:34)
[2019-03-23] MEDS ORDERED: Nursing to Pharmacy Communication ONE (14:04)
[2019-03-23] MEDS ORDERED: ACETAMINOPHEN 65 ML IV ONE (18:30)
[2019-03-23] MEDS: DULOXETINE HCL 20 MG CAP PO SCH (20:43)
[2019-03-23] MEDS: TAMSULOSIN HCL 0.4 MG CAP PO SCH (20:43)
[2019-03-23] MEDS: diazePAM 2 MG TABLET PO PRN (23:58)
[2019-03-24] MEDS: ACETAMINOPHEN 65 ML IV PRN (04:30)
[2019-03-24] MEDS ORDERED: diazePAM 2 MG TABLET PO ONE (06:04)
--- NOTE | 2019-03-24 08:05 | Urology Progress Note ---
Date of Service March 24, 2019 Assessment & Plan (1) Hydronephrosis with renal and ureteral calculus obstruction: 43yo F with 4mm mid ureteral stone Will check Renal US per patient request today. KUB reviewed by Dr. Sweeney - no change in position of midureteral stone. Lengthy discussion with patient and , answering multiple questions regarding plan of care moving forward. She states she has spoken to her [place] physician and Dr. Gill. AR physician states patient can attempt oxycodone. Discussed with Dr. Gill, he will place orders for pain control. If pain controlled with oxycodone overnight, plan to discharge home and outpatient [facility] on Saturday. Pt and comfortable with this plan. Will give pt a diet today. Clears, Advance as tolerated. Subjective Pt appears less anxious today, tolerating pain with IV tylenol and diazepam okay. Able to sleep through through the night, voiding without difficulty - clear yellow. at bedside. KUB - no change in position of left ureteral stone. NO fevers. No labs today Review of Systems Review of Systems: All systems reviewed & are unremarkable except as noted in HPI & below Physical Exam Constitutional: no acute distress and not ill appearing Eyes: no nystagmus ENMT: Ears: no hearing impairment Neck: trachea midline Respiratory: no respiratory distress and no cough Cardiovascular: Vessels: no JVD Chest (Breasts): Chest: normal inspection of chest Gastrointestinal (Abdomen): Inspection/Auscultation: abdomen not distended and no abdominal edema Percussion/Palpation: abdomen soft; abdomen nontender Musculoskeletal: Head/Neck/Chest: normocephalic and head atraumatic Skin: no rashes, warm and dry Neurologic: awake; not confused and not obtunded Psychiatric: Orientation: alert and oriented x 3 Eye Contact: good eye contact Affect: no depressed affect Lymphatic: no lymphadenopathy and no lymphedema Results & Data Vital Signs (Past 12 Hours) Vital Signs Temp Pulse Resp BP Pulse Ox 03/23/19 23:50 36.4 C L 53 L 14 132/83 98 PG Care Time/CCT Total # of Minutes Spent Total Time Spent with Patient: Total time spent is greater than 50% in coordination of care (as documented) at patient's floor/unit and/or counseling patient:
--- NOTE | 2019-03-24 09:10 | XRay Report ---
KUB HISTORY: left ureteral stone visibility COMPARISON: KUB 03/23/2019. Abdomen and pelvis CT 03/22/2019. FINDINGS: The bowel gas pattern is unremarkable. There are no dilated loops of small bowel to suggest an obstruction. There is a 4 mm stone within the proximal to mid left ureter immediately inferior t o the left L3 transverse process. This is unchanged in position compared to the prior CT examination. No renal calculi identified. Calcifications in the deep pelvis remain stable and likely represent ph leboliths. Cholecystectomy. No pneumoperitoneum or pneumatosis. IMPRESSION: No change in the 4 mm stone within the proximal to mid left ureter immediately inferior to the left L 3 transverse process. Electronically signed by: Dayron Hayes M.D. 03/24/2019 9:08 AM
--- NOTE | 2019-03-24 09:44 | Hospitalist Progress Note ---
Date of Service March 24, 2019 Assessment & Plan (1) Hydronephrosis of left kidney: (2) Hydronephrosis with renal and ureteral calculus obstruction: -Hydronephrosis of left kidney secondary to obstruction renal stone -admission CT abdomen: The lung bases are clear. No pneumoperitoneum. No pneumatosis. No fractures within the visualized osseous structures. Cholecystectomy. The liver, spleen, adrenal glands, pancreas, and right kidney are unremarkable. There is a punctate stone within the upper pole the left kidney. There is mild left hydronephrosis secondary to an obstructing mid left ureteral stone best seen on image 208. This measures 4 mm. The bladder is unremarkable. The uterus and bilateral adnexa are within normal limits. Suboptimal evaluation for bowel pathology due to the lack of intravenous and oral contrast. However, there is no definite bowel wall thickening or obstru ction. Normal appendix. -IV fluids as 125 cc/hr -Pain control is an issue because of multiple drug allergies with alleged anaphylaxis reactions such as mouth/throat swelling/closing -Patient received multiple Fentanyl doses in the ED -patient did not want to be in PCU telemetry ballard if IV Fentanyl was needed -she has declined IV acetaminophen -currently orders or oral acetaminophen prn for pain -IV anti-emetics as needed -[facility] urology consult evaluated the patient and started tamsulosin and oxybutynin, will continue these medications -KUB on 03/23/19 has not shown passing of renal stone, patient would like to continue conservative management with IV fluids and tamsulosin and oxybutynin -03/24/19: Patient seen and examined at the bedside. Patient's reported that patient could not go down in wheelchair for KUB because she had anxiety of sitting in wheelchair. But patient has been ambulatory. Instead portable X ray was brought upstairs for KUB to be done. No change in the 4 mm stone within the proximal to mid left ureter immediately inferior to the left L3 transverse process on KUB. Patient reports she has not some white material recently in her urine so presumably she has been able to urinate some calcium particles but the obstructing stone remains in left ureter as been followed by KUB. She discussed that urology may be planning CT abdomen/pelvis versus encouraging her to get Lithotripsy. Patient affirms allergies to shellffish and reported that last time she go IV contrast for imaging, she required epinephrine. Patient reports again acetaminophen is insufficient pain control. She affirms allergies to NSAIDs and codeine. she is somewhat ambiguous about the problems to oxycodone or hydrocodone or morphine or tramadol but she declines trial of those medications due to concern for anaphylaxis. Patient declining at this time Fentanyl patch for pain control. Hospitalist medicine physician offered pain management consultation and she declined (3) PTSD (post-traumatic stress disorder): -[facility] [place] [facility] [place] at bedside [phone] corroborated patient's request for private room because of PTSD -Cymbalta qhs, Benzodiazepine anxiolytic prn Full Code Status Subjective Patient seen and examined at the bedside. Patient's reported that patient could not go down in wheelchair for KUB because she had anxiety of sitting in wheelchair. But patient has been ambulatory. Instead portable X ray was brought upstairs for KUB to be done. No change in the 4 mm stone within the proximal to mid left ureter immediately inferior to the left L3 transverse process on KUB. Patient reports she has not some white material recently in her urine so presumably she has been able to urinate some calcium particles but the obstructing stone remains in left ureter as been followed by KUB. She discussed that urology may be planning CT abdomen/pelvis versus encouraging her to get Lithotripsy. Patient affirms allergies to shellffish and reported that last time she go IV contrast for imaging, she required epinephrine. Patient reports again acetaminophen is insufficient pain control. She affirms allergies to NSAIDs and codeine. she is somewhat ambiguous about the problems to oxycodone or hydrocodone or morphine or tramadol but she declines trial of those medications due to concern for anaphylaxis. Patient declining at this time Fentanyl patch for pain control. Hospitalist medicine physician offered pain management consultation and she declined Physical Exam Constitutional: WD/WN, vitals as above Eyes: EOM intact bilaterally ENMT: external ear and nose normal, oropharynx normal Neck: normal visual inspection Respiratory: normal respiratory effort, lungs clear to auscultation Cardiovascular: RRR, no murmur, no edema Gastrointestinal (Abdomen): normal bowel sounds, soft, nontender, no hepatosplenomegaly Musculoskeletal: Head/Neck/Chest: normocephalic and head atraumatic Neurologic: moves all extremities Psychiatric: A+Ox3, euthymic affect Results & Data Vital Signs (Past 12 Hours) Vital Signs Temp Pulse Resp BP BP Pulse Ox 03/24/19 08:59 36.5 C 52 L 16 144/97 H 98 03/23/19 23:50 36.4 C L 53 L 14 132/83 98
[2019-03-24] MEDS: OXYCODONE HCL IR 5 MG TAB (IMMEDIATE RELEASE) PO PRN ×2 (11:17→23:50)
--- NOTE | 2019-03-24 12:02 | Ultrasound Report ---
RENAL ULTRASOUND HISTORY: left flank pain COMPARISON: KUB 03/24/2019. Abdomen and pelvis CT 03/22/2019. FINDINGS: Right kidney: 11.3 cm. No hydronephrosis. Normal corticomedullary differentiation and cortical thickn ess. Left kidney: 11.5 cm. Mild hydronephrosis. There is a 7 x 3 mm stone within the mid left ureter appro ximately 7 cm from the ureteropelvic junction. Normal corticomedullary differentiation and cortical t hickness. Bladder: No bladder wall thickening. The bilateral ureteral jets were identified. IMPRESSION: 1. A 7 x 3 mm stone within the mid left ureter resulting in mild left hydronephrosis. This is not sig nificantly changed. 2. Normal right kidney. Electronically signed by: Dayron Hayes M.D. 03/24/2019 12:00 PM
[2019-03-24] MEDS: SODIUM CHLORIDE 0.9% 1000ML 1,000 ML IV SCH (18:06)
[2019-03-24] MEDS: DULOXETINE HCL 20 MG CAP PO SCH (20:16)
[2019-03-24] MEDS: TAMSULOSIN HCL 0.4 MG CAP PO SCH (20:17)
[2019-03-25] MEDS: SODIUM CHLORIDE 0.9% 1000ML 1,000 ML IV SCH ×2 (03:39→09:09)
[2019-03-25] MEDS ORDERED: ACETAMINOPHEN 325 MG TAB PO STA (06:00)
--- NOTE | 2019-03-25 08:11 | Urology Progress Note ---
Date of Service March 25, 2019 Assessment & Plan (1) Hydronephrosis with renal and ureteral calculus obstruction: 43yo F with 4mm mid ureteral stone Renal US - mild left hydro which is encouraging. Pt requesting KUB again this AM - will order. Pain appears controlled. Pt feels comfortable to discharge home today, please have patient report to [facility] upon discharge to update H&P and go over paperwork for outpatient ESWL on Saturday. Okay to discharge home with flomax, pain control (oxycodone 2.5mg ONLY). Will discuss with primary team. Thank you for allowing us to participate in the acute care of Ms. Mehta. Please reconsult us with additional questions, concerns or changes in patient status. Subjective Pt continues to progress. Appears calm this AM, sitting up on side of bed. She was able to tolerate oxycodone 2.5mg for pain, no allergic reaction. States she was pretty sedate after dose but able to tolerate. Able to sleep through through the night, continues to void without difficulty. at bedside. Remains afebrile, VSS No new issues today. Review of Systems Review of Systems: All systems reviewed & are unremarkable except as noted in HPI & below Physical Exam Physical Exam: A&OX3 RRR abd soft, nontender no LE edema urine not visualized Results & Data Vital Signs (Past 12 Hours) Vital Signs Temp Pulse Resp BP Pulse Ox 03/25/19 07:29 36.6 C 56 L 16 136/89 96 03/24/19 23:52 36.4 C L 50 L 14 123/83 100 PG Care Time/CCT Total # of Minutes Spent Total Time Spent with Patient: Total time spent is greater than 50% in coordination of care (as documented) at patient's floor/unit and/or counseling patient:
--- NOTE | 2019-03-25 08:57 | XRay Report ---
KUB HISTORY: Follow up study in a patient with left ureteral calculus left ureteral stone position COMPARISON: KUB and renal ultrasound studies 03/24/2019 FINDINGS: The bowel gas pattern is non-obstructive. There is no organomegaly. 4 mm calculus of the p roximal to mid left ureter is again noted at the level of the L3 vertebral body, unchanged in positio aquiles from comparison. No definite renal calculi identified. Calcifications of the pelvis are again se en suggestive of phleboliths. No pneumoperitoneum or pneumatosis. No fracture. IMPRESSION: Unchanged positioning of the 4 mm calculus of the proximal to mid left ureter. Electronically signed by: Gurdeep Suarez M.D. 03/25/2019 8:56 AM
--- NOTE | 2019-03-25 10:38 | Discharge Summary ---
Date of Service March 25, 2019 Admission HPI Per Admitting Provider The patient is a 43 year old female who presents to the Emergency Department via EMS who woke up with pain in AM of 03/22/19 and found to have left kidney stone of 4 mm that is obstructing with hydronephrosis. Patient reports that with symptoms she has recent poor oral intake. Initially, ED notes described pain has also been associated with chest discomfort radiating to back, and abdominal pain and nausea. Patient also requested that the lights be turned off in the ED exam room to avoid exacerbating headache. Because of multiple drug allergies including different types of pain medications with reported history of anaphylaxis reactions such as mouth/throat swelling/closing, the ED physician gave multiple Fentanyl doses as the recourse to control severe pain. When seen by hospitalist physician, patient was seen to be uncomfortable and drowsy and complaining of feeling the "bed pushing against her back" Patient was able to sit up with assistance from her at the bedside. Patient denied pain of chest or abdomen when examined by medical doctor and there was reported more discomfort on percussion of left flank but the patient did not appear to be acutely tender there. Patient was alert to give some health history but deferred to her to answer past medical health issues in detail due to malaise. Patient also reports history of right sided renal stone that was managed by [facility] urology around May of 2018. Patient and patient's affirms that patient needs a private room when admitted because of history of Post Traumatic Stress Disorder and recently was started on Cymbalta at home. As per patient and her : denies other current medical conditions. denies family history of health problems Admission Exam Per Admitting Provider Constitutional: + ill appearing Eyes: EOM intact bilaterally ENMT: external ear and nose normal, oropharynx normal Neck: normal visual inspection Respiratory: normal respiratory effort, lungs clear to auscultation Cardiovascular: RRR, no murmur, no edema Gastrointestinal (Abdomen): normal bowel sounds, soft, nontender, no hepatosplenomegaly Musculoskeletal: Head/Neck/Chest: normocephalic and head atraumatic on percussion of flanks, patient reports tenderness to the left flank Neurologic: moves all extremities Principal Diagnosis Hydronephrosis with renal and ureteral calculus obstruction Discharge Exam General Appearance: WD/WN, vitals as above, NAD, sitting up in bed, pleasant, conversing easily Head: normocephalic, atraumatic Eyes: normal inspection, PERRL, conjunctivae normal, anicteric sclerae ENT: external ear and nose normal, oropharynx normal Neck: trachea midline, no thyromegaly normal visual inspection Respiratory: lungs clear to auscultation, no wheeze, rales, rhonchi. Normal insp/exp effort, no accessory muscle use Cardiovascular: regular rate, rhythm, no murmur, normal peripheral pulses. Vessels: no JVD or carotid bruit Chest: normal inspection of chest Abdomen/GI: normal bowel sounds, soft, nontender except for L flank, no hepatosplenomegaly Extremities/Musculoskelatal: no cyanosis or clubbing, extremities motor strength 5/5 Neurologic: PERRL, EOMI, no face palsy, no dysarthria CN's II-XI intact bilaterally and moves all extremities Psychiatric: A+Ox3, euthymic affect Skin: no rashes, normal color, warm/dry Discharge Data Allergies Allergy/AdvReac Type Severity Reaction Status Date / Time aspirin Allergy Severe Anaphylaxis Verified 03/27/19 07:17 bee venom protein (honey bee) Allergy Severe Anaphylaxis Verified 03/27/19 07:17 codeine Allergy Severe Anaphylaxis Verified 03/27/19 07:17 ibuprofen Allergy Severe Anaphylaxis Verified 03/27/19 07:17 Iodinated Contrast Media Allergy Severe Swelling Verified 03/27/19 07:17 [Iodinated Contrast- Oral of and IV Dye] Lip/Tongue/Throat latex Allergy Severe Anaphylaxis Verified 03/27/19 07:17 Penicillins Allergy Severe Anaphylaxis Verified 03/27/19 07:17 milk AdvReac Intermediate Vomiting Verified 03/27/19 07:17 prednisone AdvReac Unknown Unknown Verified 03/27/19 07:17 Consultations 03/22/19 07:40 ED Decision to Admit Stat 03/22/19 07:42 Consult Urology Routine Ordered Studies 03/22/19 06:19 CT abd pelvis wo con Stat 03/24/19 09:38 US renal/blad retro comp Routine Hospital Course (1) Hydronephrosis with renal and ureteral calculus obstruction: Patient with PMH of PTSD admitted on 03/22 with discomfort due to hydronephrosis of left kidney secondary to obstruction of 4 mm renal stone. Was evaluated by urology service and felt there was a chance that stone would pass. Was started on Flomax and oxybutynin as needed. Repeat KUB the following day did not show passing of renal stone but patient opted to continue conservative management with fluids and medications. Urology service discussed possibility of stent placement with patient, who ultimately decided on outpatient lithotripsy procedure on Saturday, March 27. Patient is anxious at baseline in setting of PTSD and also has multiple allergies listed with reported anaphylaxis. [place] more comfortable to wait for outpatient procedure. Pain was not well controlled with acetaminophen alone and a small dose of oxycodone was trialed and offered more successful pain management. Today, patient remains afebrile and hemodynamically stable. Left flank pain has improved on current regimen of Tylenol and oxycodone 2.5 mg every 8 hours as needed. Patient feels comfortable with discharge today. Was evaluated by urology service this morning, who would like patient to follow up at their office upon discharge today to go over paperwork for lithotripsy on Saturday. Will be discharged home on Flomax and pain control of oxycodone 2.5mg Q6H PRN. Patient has follow up arranged with PCP for later this afternoon. A [id number] examination was performed on day of discharge revealing hemodynamically stable and afebrile patient in no acute distress. Physical exam revealed clear lungs to auscultation bilaterally and normal heart sounds with no evidence of murmur. She was euvolemic with no evidence of pedal edema. She had a tender abdomen and CVA tenderness. She will follow-up with primary care doctor closely and urology on Saturday for outpatient procedure. Total Time Total Time Spent Total Time Spent (In Minutes): 40 Total Time Includes: Examination of the Patient, Discharge Planning, Medication Reconciliation and Communication With Other Providers Discharge Plan Discharge Items Patient Disposition: Home - Self-Care Reason For Visit: KIDNEY STONE Discharge Diagnosis: Hydronephrosis with renal and ureteral calculus obstruction Activity: Resume your previous activity Non-emergency contact: Primary Care Provider and Urologist Call non-emergency contact if: you have any medication questions, your symptoms worsen, your pain is worsening and you have a fever Follow-up/Referrals: PCP,NO [Primary Care Provider] - Diet: Regular Addtl Attending Provider Instructions: MEDICATION CHANGES: Flomax 0.4mg at 8pm every night Oxycodone 2.5mg Q6H as needed for pain. Okay to alternate with Tylenol RECOMMENDATIONS FOR FOLLOW-UP: Per urology, please report to [address] upon discharge to update H&P and go over paperwork for outpatient ESWL on Saturday. We recommend a one week follow-up appointment with PCP. Seek medical attention if you have: * temperature above 101 * chest pain or trouble breathing * abdominal pain, nausea, vomiting * diarrhea, dark stools or bloody stools * any unanswered questions or concerns Call 911 if symptoms are severe. Please take good care of yourself. Call if you have any questions or problems. You can reach a [facility] hospitalist on duty at [facility] 24 hours a day by calling [phone]. Florinda Finley PA-C Pending Studies at Discharge: No Stand-Alone Forms: Call Back Authorization, [facility], Work/School Release (Inpt) Medications and DC Order Prescriptions: New tamsulosin 0.4 mg Capsule 0.4 mg PO HS Qty: 30 RF: 0 oxycodone 5 mg capsule 2.5 mg PO Q6H PRN (Reason: pain) Qty: 10 RF: 0 Continued diazepam 2 mg Tablet 2 mg PO DIRECTED PRN (Reason: Anxiety) RF: 0 duloxetine 20 mg Capsule,Delayed Release(Dr/Ec) 20 mg PO HS RF: 0 Discontinued multivitamin Tablet 1 tab PO QAM RF: 0 lorazepam 0.5 mg Tablet 0.5 mg PO DIRECTED PRN (Reason: Anxiety) RF: 0 acetaminophen [Tylenol Extra Strength] 500 mg tablet 500 mg PO Q6H PRN (Reason: pain) Qty: 20 RF: 0 No Action rizatriptan 10 mg Tablet 10 mg PO UD PRN (Reason: Migraine Headache) RF: 0 vitamin B complex Tablet 1 tab PO HS RF: 0 cholecalciferol (vitamin D3) [Vitamin D3] 1,000 unit Capsule 1,000 unit PO HS RF: 0 oxycodone-acetaminophen 5-325 mg tablet 1 tab PO Q6H Qty: 20 RF: 0 Discharge Orders: Discharge Order (Routine); Ordered 03/25/19 Ordered By: Varsha Mills/Other Patient Handouts: Rizatriptan Benzoate Oral disintegrating tablet, Relaxation Progressive, Therapy Mind Body, Stress Relief Relaxation, Panic Disorder Tx Meds Admission Data Admit Date/Time: 03/22/19 08:34 Attending Provider: Varsha Aviles Admit Provider: Tacho Gill Primary Care Provider: PCP,NO Other Providers: Jonah Horne II Other Interventions: Discharge Summary Assessment (RN) Last Done: 03/25/19 10:43 DC Date/Time DO NOT enter until pt leaves facility: 03/25/19 11:07
== END 2019-03-25 11:07 | disposition home or self-care (01) | DRG 694 ==
LOC: ED 05:18 → SUATTDRO 08:34 → 3W 08:34 → 2S 14:41 → 3W 16:03

== ENCOUNTER 2023-08-22 16:13 | Inpatient (IN) ==
[2023-08-22 17:00] LABS: Appearance Urine Clear (Clear); Bacteria Urine Automated Negative (Negative); Bilirubin Urine Negative (Negative); Blood Urine 3+ (Negative); Cast Urine Automated 0 /lpf (0-5); Color Urine Yellow; Glucose Urine UA Negative (Negative); Ketones Urine Negative (Negative); Leukocyte Esterase Urine Trace (Negative); Nitrite Urine Negative (Negative); Protein Urine Negative (Negative); Specific Gravity Urine 1.007 (1.000-1.030); Urobilinogen Urine Negative (Negative); pH Urine 8.5 (4.5-7.5)
[2023-08-22 17:33] LABS: Basophils # (auto) 0.03 K/uL (0.00-0.20); Basophils % (auto) 0.4 %; Eosinophils # (auto) 0.08 K/uL (0.00-0.50); Eosinophils % (auto) 1.2 %; Hematocrit (blood only) 44.3 % (37.0-47.0); Hemoglobin 14.8 g/dl (12.0-16.0); Immature Granulocytes # (auto) 0.02 K/uL (0.01-0.20); Immature Granulocytes % (auto) 0.3 %; Lymphocytes # (auto) 1.67 K/uL (1.20-3.40); Lymphocytes % (auto) 24.1 %; Mean Corpuscular Hemoglobin 28.5 pg (25.0-34.0); Mean Corpuscular Hgb Conc 33.4 g/dL (32.0-36.0); Mean Corpuscular Volume 85.2 fL (80.0-100.0); Mean Platelet Volume 10.2 fL (9.4-12.4); Monocytes # (auto) 0.58 K/uL (0.11-0.59); Monocytes % (auto) 8.4 %; Neutrophils # (auto) 4.55 K/uL (1.40-6.50); Neutrophils % (auto) 65.6 %; Platelet Count 308 K/uL (130-400); RDW Coefficient of Variation 13.6 % (11.5-14.5); RDW Standard Deviation 42.4 fL (36.4-46.3); White Blood Count 6.93 K/ul (4.8-10.8)
--- NOTE | 2023-08-22 17:38 | Emergency Department Note ---
Impression & Plan Left ureteral calculus, Acute left flank pain, Hematuria ED Provider Note NAME: ANOOP ODONNELL AGE: 47 SEX: F : 1975 ARRIVES VIA: Ambulance INFORMANT: Patient, ED PROVIDER(S): Ethan Simms DO CHIEF COMPLAINT: Flank pain HPI: The patient is a 47-year-old female who presented to the emergency department for an evaluation of acute left flank pain. She also noticed hematuria. The patient states that the pain is moderate to severe. She denies having any chest pain or difficulty breathing. She denies having any lower extremity swelling or pain. The patient states that she had kidney stones in the past she required lithotripsy. She denies have any fever ROS: See above HPI for pertinent positives & negatives. A total of 10 systems reviewed and were otherwise negative. PAST MEDICAL HISTORY: See Below PAST SURGICAL HISTORY: See Below FAMILY HISTORY: See Below SOCIAL HISTORY: See Below HOME MEDICATIONS: See Below ALLERGIES: See Below VITALS: See Below PHYSICAL EXAMINATION: Patient is awake and alert. The patient is somewhat anxious appearing EYES: The conjunctivae are clear. The pupils are round and reactive. EARS, NOSE, MOUTH AND THROAT: The nose is without any evidence of any deformity. NECK: The neck is nontender and supple. RESPIRATORY: Normal respiratory effort is noted there is no evidence of wheezing rhonchi or rales CARDIOVASCULAR: Regular rate and rhythm noted there no murmurs rubs or gallops normal S1 normal S2. GASTROINTESTINAL: The abdomen is soft. Abdomen is nontender. BACK: No midline tenderness or or step-off noted range of motion in flexion extension as well as rotation no signs of muscle spasm noted MUSCULOSKELETAL/EXTREMITIES: There is no evidence of gross deformity full range of motion is noted in the hips and shoulders. SKIN: There is no obvious evidence of any rash. There are no petechiae, pallor or cyanosis noted. NEUROLOGIC: Patient is awake alert and oriented x3 MEDICAL DECISION MAKING: The patient is a 47-year-old female who presented to the emergency department with flank pain. The patient was found have a distal left ureteral calculus. She was treated with IV pain medication. Unfortunately because the patient's allergy list treatment is severely limited. She does not want anything strong for pain as she was feeling somewhat improved and she also has so many allergies. She was not able to take Flomax. She was able to get IV Tylenol and IV fluids. I discussed patient's laboratory and radiographic studies with her. She was very anxious and was not comfortable being discharged home. I explained that this ureteral calculus would not likely require intervention like her previous ureteral calculus. On a previous visit she had a 7 mm calculus with hydro. She required stenting as well as lithotripsy. The stone appears to be 4 mm and is not causing severe hydronephrosis. She was evaluated by the emergency department child support case officer. I discussed her condition with the on-call jael Piña urologist. Ultimately she was felt to be a good candidate for inpatient management of her pain. [facility] Nursing notes reviewed. Prior medical records reviewed Vital Signs: reviewed and remarkable for no significant abnormalities Differential diagnosis: Renal colic, UTI, appendicitis, diverticulitis, mesenteric ischemia, aortic pathology, infections, inflammatory bowel disease, PUD, biliary pathology, as well as other pathologies. ER treatment provided: See below Diagnostics interpreted by me: ECG: none Cardiac Monitoring: An order was placed for continuous cardiac monitoring. The monitor shows a rate of 61 bpm with sinus rhythm. Laboratory studies: As stated above and show below. Imaging studies: See below. Radiographic imaging was reviewed by myself Consultation(s): I discussed this case with Dr. Evans who is on-call for urology I discussed this case with Dr. Sosa who [facility]. Past Med/Surg History Medical History (Updated 08/22/23 @ 21:36 by Ethan Simms DO) Nephrolithiasis Hidradenitis suppurativa Melanoma back Menometrorrhagia Panic attacks Degenerative disc disease Post traumatic stress disorder Depression Anxiety Migraine Surgical History History of dilatation and curettage History of arthroscopy of right knee History of cystoscopy 05/2018--with stent placement History of wisdom tooth extraction Hx of breast reduction, elective Hx laparoscopic cholecystectomy Family History Mother Endometriosis Grandfather (Maternal) Breast cancer Grandmother (Paternal) Melanoma Other No family history of adverse response to anesthesia No significant family history Social History Smoking Status: Never smoker Second Hand Exposure: Yes (father smoked); Do You Dip or Chew Tobacco: No; Hx Alcohol Use: No Hx Substance Use: No Preferred Language: Kittitian Communication Ability: Effective [employer] Worker Required: No Beliefs That Will Affect Care: None Current Living Situation: Spouse and Family Current Living Situation Comment: Lives with and kids Feels Safe at Home: Yes Assistive Devices: None Allergies Allergies Allergy/AdvReac Type Severity Reaction Status Date / Time aspirin Allergy Severe Anaphylaxis Verified 10/22/22 18:57 bee venom protein (honey bee) Allergy Severe Anaphylaxis Verified 10/22/22 18:57 codeine Allergy Severe Anaphylaxis Verified 10/22/22 18:57 ibuprofen Allergy Severe Anaphylaxis Verified 10/22/22 18:57 Iodinated Contrast Media Allergy Severe Swelling Verified 10/22/22 18:57 [Iodinated Contrast- Oral of and IV Dye] Lip/Tongue/Throat latex Allergy Severe Anaphylaxis Verified 10/22/22 18:57 Penicillins Allergy Severe Anaphylaxis Verified 10/22/22 18:57 milk AdvReac Intermediate Vomiting Verified 10/22/22 18:57 prednisone AdvReac Unknown Unknown Verified 10/22/22 18:57 Home Meds Home Medications Medication Instructions Recorded Confirmed lorazepam 0.5 mg tablet (Ativan) 0.5 mg PO DAILY PRN Anxiety 01/02/22 08/22/23 rizatriptan 10 mg tablet (Maxalt) 10 mg PO DAILY PRN Migraine 01/02/22 08/22/23 Headache duloxetine 60 mg capsule,delayed 60 mg PO DAILY 08/22/23 08/22/23 release Results & Data (ED) Vital Signs Vital Signs - 24 hr 08/22/23 16:27 08/22/23 18:55 08/22/23 20:20 Temperature 36.5 C 36.7 C Temperature Source Oral Oral Pulse Rate 72 66 Pulse Rate [Apical] 62 Pulse Rhythm [Apical] Regular Pulse Strength [Apical] Normal Respiratory Rate 18 16 12 Respiratory Effort / Characteristics Non-Labored Non-Labored Respiratory Depth Normal Normal Respiratory Pattern Regular Blood Pressure 130/87 124/82 Blood Pressure [Right Arm] 124/82 Blood Pressure Mean 101 96 Blood Pressure Mean [Right Arm] 96 Pulse Oximetry 98 98 99 Oxygen Delivery Method Room Air Room Air Sepsis Recent Fever Within 48 Hours No Sepsis New/Unexplained Change in Mental Status No Sepsis Action Taken by Nursing No Action Required 08/22/23 20:36 08/22/23 20:37 Temperature Temperature Source Pulse Rate 61 Pulse Rate [Apical] Pulse Rhythm [Apical] Pulse Strength [Apical] Respiratory Rate Respiratory Effort / Characteristics Respiratory Depth Respiratory Pattern Blood Pressure Blood Pressure [Right Arm] Blood Pressure Mean Blood Pressure Mean [Right Arm] Pulse Oximetry 96 Oxygen Delivery Method Room Air Sepsis Recent Fever Within 48 Hours Sepsis New/Unexplained Change in Mental Status Sepsis Action Taken by [facility] Medications Current Medication List: was personally reviewed by me Laboratory Data Attestation: I reviewed the patient's lab results. 08/22/23 17:08 08/22/23 17:08 Lab Results 08/22/23 08/22/23 Range/Units 16:34 17:08 WBC 6.93 (4.8-10.8) K/ul RBC 5.20 (4.20-5.40) M/uL Hgb 14.8 (12.0-16.0) g/dl Hct 44.3 (37.0-47.0) % MCV 85.2 (80.0-100.0) fL MCH 28.5 (25.0-34.0) pg MCHC 33.4 (32.0-36.0) g/dL RDW Std Deviation 42.4 (36.4-46.3) fL RDW Coeff of Bhavna 13.6 (11.5-14.5) % Plt Count 308 (130-400) K/uL MPV 10.2 (9.4-12.4) fL Immature Gran % (Auto) 0.3 % Neut % (Auto) 65.6 % Lymph % (Auto) 24.1 % [place] % (Auto) 8.4 % Eos % (Auto) 1.2 % Baso % (Auto) 0.4 % Neut # (Auto) 4.55 (1.40-6.50) K/uL Lymph # (Auto) 1.67 (1.20-3.40) K/uL [place] # (Auto) 0.58 (0.11-0.59) K/uL Eos # (Auto) 0.08 (0.00-0.50) K/uL Baso # (Auto) 0.03 (0.00-0.20) K/uL Immature Gran # (Auto) 0.02 (0.01-0.20) K/uL Sodium 138 (136-145) mmol/L Potassium 3.4 L (3.5-5.1) mmol/L Chloride 109 H (98-107) mmol/L Carbon Dioxide 23 (21-32) mmol/L Anion Gap 6 (3-11) BUN 13 (6-23) mg/dl Creatinine 0.72 (0.6-1.2) mg/dl Est Cr Clr Drug Dosing 98.7 ml/min Est GFR ( Amer) 114.0 ml/min Est GFR (Non-Af Amer) 98.3 ml/min BUN/Creatinine Ratio 18.1 (10-20) Glucose 91 (70-99(Fasting)) mg/dl Calcium 10.2 (8.6-10.3) mg/dl Total Bilirubin 0.7 (0.2-1.0) mg/dl AST 18 (13-39) U/L ALT 16 (7-52) U/L Alkaline Phosphatase 57 (34-104) U/L Total Protein 7.2 (6.0-8.3) gm/dl Albumin 4.5 (3.4-5.0) gm/dl Globulin 2.7 (2.5-4.0) gm/dl Albumin/Globulin Ratio 1.7 (0.9-2) Lipase 22 (11-82) U/L HCG, Qual Negative (Negative) Urine Color Yellow Urine Appearance Clear (Clear) Urine pH 8.5 H (4.5-7.5) Ur Specific [place] 1.007 (1.000-1.030) Urine Protein Negative (Negative) Urine Glucose (UA) Negative (Negative) Urine Ketones Negative (Negative) Urine Blood 3+ H (Negative) Urine Nitrite Negative (Negative) Urine Bilirubin Negative (Negative) Urine Urobilinogen Negative (Negative) Ur Leukocyte Esterase Trace H (Negative) Urine WBC (Auto) 1-5 (0-5) /hpf Urine RBC (Auto) 10-30 H (0-4) /hpf U Hyaline Cast (Auto) 0 (0-5) /lpf U Epithel Cells (Auto) 5-10 H (0-5) /lpf Urine Bacteria (Auto) Negative (Negative) Administered Medications Discontinued Medications Fentanyl Citrate (Fentanyl Citrate Pf 100 Mcg/2 Ml Vial) 25 mcg IV NOW STA Stop: 08/22/23 20:19 Last Admin: 08/22/23 20:54 Dose: Not Given Documented By: KYE Sodium Chloride (Nss) 1,000 mls @ 999 mls/hr IV .Q1H1M ONE Stop: 08/22/23 18:28 Last Infusion: 08/22/23 20:36 Dose: Infused Documented By: Admin: 08/22/23 17:55 Dose: 999 mls/hr Documented By: PATRICIA Acetaminophen (Ofirmev) 1,000 mg in 100 mls @ 400 mls/hr IV NOW STA Stop: 08/22/23 17:42 Last Infusion: 08/22/23 20:36 Dose: Infused Documented By: Admin: 08/22/23 17:54 Dose: 400 mls/hr Documented By: PATRICIA Lorazepam 0.5 mg/ Syringe 0.5 mls @ 2 mls/min IV NOW STA Stop: 08/22/23 21:02 Last Admin: 08/22/23 21:22 Dose: 2 mls/min Documented By: KYE Lorazepam (Lorazepam 1 Mg/1 Ml Syr Ed Inj Use) 0.5 mg IV ONE STA Stop: 08/22/23 20:09 Last Admin: 08/22/23 20:14 Dose: 0.5 mg Documented By: KYE Ondansetron HCl (Ondansetron Inj 2 Mg/Ml 2 Ml Vial) 4 mg IV NOW STA Stop: 08/22/23 17:29 Last Admin: 08/22/23 17:54 Dose: 4 mg Documented By: PATRICIA Potassium Chloride (Potassium Chloride Crtab 20 Meq Tabcr) 40 meq PO NOW STA Stop: 08/22/23 20:33 Last Admin: 08/22/23 20:56 Dose: 40 meq Documented By: KYE Tamsulosin HCl (Tamsulosin Hcl 0.4 Mg Cap) 0.4 mg PO NOW ONE Stop: 08/22/23 19:00 Last Admin: 08/22/23 19:16 Dose: Not Given Documented By: KYE Imaging Data Attestation: I personally reviewed and interpreted this imaging study as follows: My Impression: CT of the abdomen and pelvis was obtained in the emergency department. My interpretation is no free air or signs of bowel obstruction, final report below. Radiologist's Impression: Abdomen/Pelvis CT 08/22/23 17:28 CT SCAN OF THE ABDOMEN AND PELVIS WITHOUT IV CONTRAST CLINICAL HISTORY: Left flank pain. COMPARISON STUDY: Abdominal CT dated 01/02/2022. TECHNIQUE: CT scan of the abdomen and pelvis is performed from the lung bases to the proximal femora. Images are reviewed in the axial, sagittal, and coronal planes. IV contrast was not administered for this examination. A dose lowering technique was utilized adhering to the principles of ALARA. There is streak artifact from the arms which could not be elevated above the abdomen. CT DOSE: 1499.84 mGy.cm FINDINGS: Lung bases: The heart is normal in size and without pericardial effusion. The lung bases are clear. Liver: The unenhanced liver is normal in size, contour, and attenuation. There is no intrahepatic biliary ductal dilatation. Gallbladder: Surgically absent noting clips in the gallbladder fossa. Spleen: Normal in size and attenuation. Pancreas: Unremarkable. Adrenal glands: Unremarkable. Kidneys: The unenhanced kidneys are normal in size. There is a 4 mm obstructing calculus in the distal left ureter at the level of the pelvic inlet seen on image #267. This causes minimal upstream left hydroureteronephrosis. There are at least 3 additional nonobstructing left renal calculi which measure up to 7 mm. A 4 mm nonobstructing calculus is seen in the right lower pole. There is no right ureteral stone or right-sided hydronephrosis. There is no evidence of contour deforming renal mass lesion. Abdominal vasculature: The abdominal aorta is normal in course and caliber. Bowel: There is no bowel obstruction. The appendix is well-visualized and normal. Peritoneum: There is no intraperitoneal free air or abdominal ascites. There is a fat-containing umbilical hernia. Lymphadenopathy: None. Pelvic viscera: The bladder, uterus, and adnexa are normal as visualized. There are small ovarian follicles. Skeletal structures: No lytic or blastic lesions are seen. Sclerotic change is seen in the sacroiliac joints. IMPRESSION: 1. There is a 4 mm obstructing calculus in the distal left. This causes minimal left hydroureteronephrosis. 2. Additional nonobstructing bilateral renal calculi as above. 3. Additional findings as above. ACT 112: Negative or not required by law. Electronically signed by: Chase Mackenzie M.D. 08/22/2023 6:43 PM Discharge Plan Visit Data Chief Complaint: Abdominal Pain Stated Complaint: LEFT SIDE ABDOMINAL PAIN ED Provider: Ethan Simms Discharge Problem: Left ureteral calculus, Acute left flank pain, Hematuria Patient Disposition: Being Evaluated by Hospitalist Forms Stand Alone Forms: [facility] Prescriptions: No Action rizatriptan [Maxalt] 10 mg Tablet 10 mg PO DAILY PRN (Reason: Migraine Headache) Rx Instructions: take 1 tab at onset of headache; if no relief may repeat 1 tab after at least 2 hrs; max = 3 tabs/24 hr lorazepam [Ativan] 0.5 mg Tablet 0.5 mg PO DAILY PRN (Reason: Anxiety) duloxetine 60 mg Capsule,Delayed Release(Dr/Ec) 60 mg PO DAILY Referrals Referrals: [facility],Hospital [Primary Care Provider] - Discharge Problem: Hematuria Qualifiers: Hematuria type: unspecified type Qualified Code(s): R31.9 - Hematuria, unspecified
[2023-08-22 17:51] LABS: Albumin Globulin Ratio 1.7 (0.9-2); Albumin Level 4.5 gm/dl (3.4-5.0); BUN Creatinine Ratio 18.1 (10-20); Bilirubin,Total 0.7 mg/dl (0.2-1.0); Calcium 10.2 mg/dl (8.6-10.3); Creatinine Clr Calc Pharmacy 98.7 ml/min; Est GFR (Non-African American) 98.3 ml/min; Globulin 2.7 gm/dl (2.5-4.0); Potassium 3.4 mmol/L (3.5-5.1); Total Protein 7.2 gm/dl (6.0-8.3)
[2023-08-22] MEDS: ONDANSETRON INJ 2 MG/ML 2 ML VIAL IV STA (17:54)
[2023-08-22] MEDS: ACETAMINOPHEN 1,000 MG/100 ML VIAL IV STA (17:54)
[2023-08-22] MEDS: SODIUM CHLORIDE 0.9% 1,000 ML IV ONE (17:55)
[2023-08-22 18:08] LABS: Pregnancy Test, Serum Negative (Negative)
--- NOTE | 2023-08-22 18:45 | CT Scan Report ---
CT SCAN OF THE ABDOMEN AND PELVIS WITHOUT IV CONTRAST CLINICAL HISTORY: Left flank pain. COMPARISON STUDY: Abdominal CT dated 01/02/2022. TECHNIQUE: CT scan of the abdomen and pelvis is performed from the lung bases to the proximal femora. Images are reviewed in the axial, sagittal, and coronal planes. IV contrast was not administered for this examination. A dose lowering technique was utilized adhering to the principles of ALARA. There is streak artifact from the arms which could not be elevated above the abdomen. CT DOSE: 1499.84 mGy.cm FINDINGS: Lung bases: The heart is normal in size and without pericardial effusion. The lung bases are clear. Liver: The unenhanced liver is normal in size, contour, and attenuation. There is no intrahepatic ml iary ductal dilatation. Gallbladder: Surgically absent noting clips in the gallbladder fossa. Spleen: Normal in size and attenuation. Pancreas: Unremarkable. Adrenal glands: Unremarkable. Kidneys: The unenhanced kidneys are normal in size. There is a 4 mm obstructing calculus in the dista l left ureter at the level of the pelvic inlet seen on image #267. This causes minimal upstream left hydroureteronephrosis. There are at least 3 additional nonobstructing left renal calculi which measur e up to 7 mm. A 4 mm nonobstructing calculus is seen in the right lower pole. There is no right urete ral stone or right-sided hydronephrosis. There is no evidence of contour deforming renal mass lesion. Abdominal vasculature: The abdominal aorta is normal in course and caliber. Bowel: There is no bowel obstruction. The appendix is well-visualized and normal. Peritoneum: There is no intraperitoneal free air or abdominal ascites. There is a fat-containing umbi lical hernia. Lymphadenopathy: None. Pelvic viscera: The bladder, uterus, and adnexa are normal as visualized. There are small ovarian fol licles. Skeletal structures: No lytic or blastic lesions are seen. Sclerotic change is seen in the sacroiliac joints. IMPRESSION: 1. There is a 4 mm obstructing calculus in the distal left. This causes minimal left hydroureteroneph rosis. 2. Additional nonobstructing bilateral renal calculi as above. 3. Additional findings as above. ACT 112: Negative or not required by law. Electronically signed by: Chase Mackenzie M.D. 08/22/2023 6:43 PM
[2023-08-22] MEDS: TAMSULOSIN HCL 0.4 MG CAP PO ONE (19:16)
[2023-08-22] MEDS: LORazepam 1 MG/1 ML SYR ED Inj Use IV STA (20:14)
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
[2023-08-22] MEDS ORDERED: fentaNYL citrate PF 100 MCG/2 ML VIAL IV PRN ×2 (20:41→23:38)
[2023-08-22] MEDS: fentaNYL citrate PF 100 MCG/2 ML VIAL IV STA (20:54)
[2023-08-22] MEDS: POTASSIUM CHLORIDE CRTAB 20 MEQ TABCR PO STA (20:56)
[2023-08-22] MEDS: LORazepam 0.5 MG in SYRINGE 0.25 ML IV STA (21:22)
[2023-08-22] MEDS ORDERED: LORazepam 0.5 MG TAB PO PRN (23:38)
[2023-08-22] MEDS ORDERED: traMADol HCL 50 MG TABLET PO PRN (23:38)
[2023-08-22] MEDS: LACTATED RINGER'S 1,000 ML IV SCH (23:51)
[2023-08-23] MEDS: ACETAMINOPHEN 1,000 MG/100 ML VIAL IV SCH (02:15)
[2023-08-23] MEDS ORDERED: DULoxetine HCL 60 MG CAP PO SCH (09:00)
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
[2023-08-23] MEDS: PHENAZOPYRIDINE HCL 100 MG TAB PO PRN (12:03)
--- NOTE | 2023-08-23 13:29 | XRay Report ---
KUB CLINICAL HISTORY: Ureteral stone. FINDINGS: 2 AP supine abdominal radiographs are correlated with abdominal CT dated 08/22/2023. Cholecys tectomy clips are noted in the right upper quadrant. There is a nonobstructed abdominal bowel gas pat tern. The distal left ureteral stone seen on yesterday's CT scan is not visualized and may project ov er the sacrum. No renal calculi are clearly identified by x-ray. Phleboliths in the right hemipelvis are unchanged. The bony structures appear intact. IMPRESSION: No renal calculi and a distal left ureteral stent seen on yesterday's CT scan are not vis ualized by x-ray. Electronically signed by: Chase Mackenzie M.D. 08/23/2023 1:27 PM
[2023-08-23] MEDS ORDERED: EPINEPHrine INJ 1 MG/ML AMP IM PRN (13:56)
[2023-08-23] MEDS: TAMSULOSIN HCL 0.4 MG CAP PO ONE (14:31)
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
[2023-08-23] MEDS ORDERED: oxyCODONE HCL IR 5 MG TAB (IMMEDIATE RELEASE) PO PRN (21:01)
[2023-08-23] MEDS: LORazepam 0.5 MG TAB PO PRN (21:10)
[2023-08-23] MEDS: DULoxetine HCL 60 MG CAP PO SCH (21:10)
[2023-08-24] MEDS: TAMSULOSIN HCL 0.4 MG CAP PO SCH (09:01)
[2023-08-24] MEDS: POTASSIUM CHLORIDE CRTAB 20 MEQ TABCR PO STA (10:18)
[2023-08-24 13:22] LABS: Calcium 9.7 mg/dl (8.6-10.3); Creatinine Clr Calc Pharmacy 101.5 ml/min; Est GFR (African American) 117.9 ml/min; Est GFR (Non-African American) 101.7 ml/min; Magnesium 1.7 mg/dl (1.7-2.4); Potassium 3.8 mmol/L (3.5-5.1)
--- NOTE | 2023-08-24 14:12 | XRay Report ---
XR KUB/Abdomen 1 view CLINICAL HISTORY: renal colic TECHNIQUE: 1 view of the abdomen was obtained. Comparison: Comparison is made to abdomen radiograph 08/23/2023 FINDINGS: Calcific densities compatible with nephrolithiasis are noted. No ureteral or pelvic stones are seen. Pelvic phleboliths are seen. No definite visualization of the left ureteric stone. Degenerative song es are seen in the visualized skeleton. The bowel gas pattern is nonobstructive. A moderate amount of stool is noted within the large bowel. IMPRESSION: Stable nephrolithiasis as above. The previously noted left ureteric stone is not well seen on today's exam. Of note, CT renal stone protocol is a more sensitive modality. ACT 112: Negative or not required by law. Electronically signed by: Indio Gil M.D. 08/24/2023 2:09 PM
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
[2023-08-24] MEDS ORDERED: RIZATRIPTAN BENZOATE MLT 10 MG TAB PO PRN (18:19)
[2023-08-24] MEDS: diphenhydrAMINE HCL 25 MG/10 ML UDC PO PRN (20:44)
[2023-08-25] MEDS: ONDANSETRON INJ 2 MG/ML 2 ML VIAL IV PRN (05:13)
[2023-08-25 11:14] LABS: Calcium 9.5 mg/dl (8.6-10.3); Creatinine Clr Calc Pharmacy 94.8 ml/min; Est GFR (African American) 108.5 ml/min; Est GFR (Non-African American) 93.6 ml/min; Potassium 3.7 mmol/L (3.5-5.1)
[2023-08-25] MEDS ORDERED: LIDOCAINE 5% 1 PATCH TD SCH (11:15)
[2023-08-25] MEDS: RIZATRIPTAN BENZOATE MLT 10 MG TAB PO PRN (12:02)
[2023-08-25] MEDS: NAPROXEN 250 MG TAB PO ONE (13:20)
--- NOTE | 2023-08-25 13:33 | CT Scan Report ---
CT abd pelvis wo con CLINICAL HISTORY: calculus in the distal left. TECHNIQUE: Helical axial images of the abdomen and pelvis were obtained. Automated dose lowering tech niques and/or adjustment according to patient size were utilized for this exam. This exam was perfor med without intravenous contrast. CT DOSE: 1451.1 mGy.cm COMPARISON: Comparison is made to CT abdomen pelvis 08/22/2023 and abdomen radiographs 08/24/2023 FINDINGS: Lower chest: No acute abnormality. Liver: Unremarkable. No focal lesions are seen. Gallbladder and biliary tree: Patient is status post cholecystectomy. No intra- or extrahepatic bilia ry ductal dilation. Pancreas: Unremarkable, no focal lesions. Spleen: Unremarkable. Adrenals: Unremarkable. Kidneys and ureters: There is a left-sided ureteral stone measuring 3 mm, essentially unchanged in lo cation from prior exam. Bladder: Unremarkable. Reproductive organs: Unremarkable. Bowel: The appendix is normal. Lymph nodes Retroperitoneal: Unremarkable. Pelvic: Unremarkable. Mesenteric: Unremarkable. Peritoneum: Normal. Vessels: Unremarkable. Abdominal wall: Unremarkable. Bones: Degenerative changes in the visualized spine. IMPRESSION: Stable left distal ureter stone. Additional nonobstructive calculi are seen bilaterally. ACT 112: Negative or not required by law. Electronically signed by: Indio Gil M.D. 08/25/2023 1:30 PM
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
== END 2023-08-25 15:01 | disposition home or self-care (01) | DRG 694 ==
LOC: ED 16:13 → EDINP 19:53 → SUATTDRO 19:53 → 3N 23:37